=== PATIENT | male | born 1955 | race Caucasian/White ===

== ENCOUNTER → 2019-11-24 | Outpatient (CLI) | payer MEDICARE ==
[2016-12-12 10:51] VITALS: BP 147/83
[~2019-11-24] MED LIST: ACET325T9 PO; AMIT10TA PO; ASPI-630 PO; BUSP10TA PO; DIVA500T4 PO; HYDR-2145 PO; LISI-334 PO; LORA0.5T96 PO; OLAN2.5T11 PO; PROP80CA3 PO; SIMV80TA17 PO; TAMS0.4C2 PO; TRAZ-120 PO
--- NOTE | 2019-11-24 16:12 | RAD ---
Exam: CT abdomen and pelvis without contrast INDICATION: Abdominal pain TECHNIQUE: Sequential axial images through the abdomen and pelvis obtained without IV contrast. Sagittal and coronal reformatted images were reconstructed from the axial data and reviewed. Comparisons: None FINDINGS: Heart size is normal. No pericardial effusion. Visualized lung bases are clear. No pleural effusion. Evaluation of the solid organs is limited secondary to noncontrast technique. Liver, spleen, pancreas, gallbladder and adrenals are unremarkable. No perinephric inflammation or hydronephrosis. No renal or ureteral calculi are identified. Bladder is distended and appears thin-walled. Prostate is moderately enlarged. Few scattered diverticula are noted predominantly within the descending and sigmoid colon. Appendix is normal. Small bowel is unremarkable. No free intra-abdominal air or fluid. No obstruction. Abdominal aorta has a normal course and caliber. No enlarged intra-abdominal lymph nodes are identified. No suspicious osseous lesions or acute fractures. IMPRESSION: 1. No acute process identified within the abdomen or pelvis. 2. Diverticulosis without evidence of acute diverticulitis. 3. Moderate prostate enlargement. Exposure: One or more of the following in the visualized dose reduction techniques were utilized for this examination: 1. Automated exposure control 2. Adjustment of the MA and/or KV according to patient size 3. Use of iterative of reconstructive technique Electronically signed by: Sonny Harmon MD (11/24/2019 4:09 PM) [facility]
== END | disposition home or self-care (01) ==
LOC: CT 15:27
PROVIDERS: ATTEND Family Medicine
DX: N40.1 Benign prostatic hyperplasia with lower urinary tract symptoms (principal); K57.30 Diverticulosis of large intestine without perforation or abscess without bleeding
CPT/HCPCS: 74176

== ENCOUNTER → 2020-01-27 | Outpatient (CLI) | payer MEDICARE ==
[2016-12-12 10:51] VITALS: BP 147/83
[2020-01-27 09:51] LABS: ALBUMIN 3.7 g/dL (3.4-5.0); ALBUMIN/GLOBULIN RATIO 1.2 (1.0-1.7); CALCIUM 9.1 mg/dL (8.5-10.1); GFR 74.8; POTASSIUM 4.3 mmol/L (3.5-5.1); TOTAL BILIRUBIN 0.7 mg/dL (0.2-1.0); TOTAL PROTEIN 6.9 g/dL (6.4-8.2)
== END | disposition home or self-care (01) ==
LOC: LAB 08:30
PROVIDERS: ATTEND Internal Medicine Cardiovascular Disease
DX: E78.01 Familial hypercholesterolemia (principal)
CPT/HCPCS: 36415; 80053; 80061